=== PATIENT | female | born 1950 | race Caucasian/White ===

== ENCOUNTER → 2016-10-24 | Outpatient (CLI) | payer OTHER ==
[~2016-10-24] MED LIST: ADVIN25050 INH; ATEN50TA8 PO; CALC600T9 PO; HYDR25TA5 PO; MISCCAP80 PO; MULTTAB58 PO; NAPR500T3 PO; OXGN; VSC/10 PO; [UNRECOGNIZED DRUG - CODE] TOP
== END | disposition home or self-care (01) ==
LOC: C.LABPBG 10:38
PROVIDERS: ATTEND Internal Medicine Geriatric Medicine
DX: Z11.59 Encounter for screening for other viral diseases (principal)

== ENCOUNTER → 2016-11-30 | Outpatient (CLI) | payer OTHER ==
--- NOTE | 2016-11-30 15:09 | MAMMOGRAPHY REPORT ---
BILATERAL DIGITAL SCREENING MAMMOGRAM WITH CAD: 11/30/2016 CLINICAL HISTORY: Routine screening. Patient has no complaints. TECHNIQUE: Current study was also evaluated with a Computer Aided Detection (CAD) system. Bilatera l CC and MLO views were obtained. COMPARISON: Comparison is made to exams dated: 11/30/2015 mammogram, 11/26/2014 mammogram, 11/07/2013 mammogram, 11/04/2012 mammogram, 11/03/2011 mammogram, and 05/08/2011 mammogram - [facility]. BREAST COMPOSITION: There are scattered areas of fibroglandular density in both breasts. FINDINGS: No suspicious masses, calcifications, or areas of architectural distortion are noted in e ither breast. There has been no significant interval change compared to prior exams. There are gisela ral bilateral groupings of coarse heterogeneous microcalcifications, some of which have coarsened co mpared to prior mammograms, suggesting benignity. IMPRESSION: ACR BI-RADS CATEGORY 2: BENIGN There is no mammographic evidence of malignancy. A 1 year screening mammogram is recommended. The p atient will receive written notification of the results. Approximately 10% of breast cancers are not detected with mammography. A negative mammographic repor t should not delay biopsy if a clinically suggestive mass is present. Estefania Spear M.D. ah/:11/30/2016 13:34:44 Bottled Beverage Inspector: Linda CADENA(R)(M), [facility] letter sent: Normal 1/2 BI-RADS Code: ACR BI-RADS Category 2: Benign
== END | disposition home or self-care (01) ==
LOC: C.MAMM 09:22
PROVIDERS: ATTEND Obstetrics & Gynecology
DX: Z12.31 Encounter for screening mammogram for malignant neoplasm of breast (principal)

== ENCOUNTER → 2017-03-27 | Outpatient (CLI) | payer OTHER ==
[2017-03-27 12:07] LABS: BASO % 0.1 %; BASO ABS # 0.01 K/uL (0-0.2); COMPLETE YES; EOS % 1.1 %; HEMATOCRIT 38.6 % (37-47); IG% 0.2 %; LYMPH % 23.7 %; LYMPH ABS # 1.93 K/uL (1.2-3.4); MEAN CELL VOLUME 92.8 fL (80-100); MEAN CORPUSCULAR HEMOGLOBIN 29.8 pg (25-34); MEAN CORPUSCULAR HGB CONC 32.1 g/dl (32-36); MEAN PLATELET VOLUME 10.1 fL (7.4-10.4); MONO % 8.8 %; NEUT % 66.1 %; PLATELET COUNT 262 K/uL (130-400); RED BLOOD COUNT 4.16 M/uL (4.2-5.4); WHITE BLOOD COUNT 8.14 K/uL (4.8-10.8)
[2017-03-27 12:28] LABS: ALT/SGPT 27 U/L (12-78); AST/SGOT 20 U/L (15-37); BLOOD UREA NITROGEN 17 mg/dl (7-18); BUN/CREATININE RATIO 31.5 (10-20); CALCIUM 10.1 mg/dl (8.5-10.1); CARBON DIOXIDE 34 mmol/L (21-32); CHLORIDE 101 mmol/L (98-107); CREATININE 0.53 mg/dl (0.60-1.20); GLUCOSE 95 mg/dl (70-99); SODIUM 139 mmol/L (136-145)
[2017-03-27 12:38] LABS: ESTIMATED AVERAGE GLUCOSE 120 mg/dl; HA1C FLAG Normal (Normal)
[2017-03-27 12:39] LABS: ALKALINE PHOSPHATASE 80 U/L (45-117); CHOLESTEROL 187 mg/dl (0-200); CHOLESTEROL/HDL RATIO 3.7; HDL CHOLESTEROL 51 mg/dl; LDL CHOLESTEROL CALCULATED 104 mg/dl; TRIGLYCERIDES 159 mg/dl (0-150); VERY LOW DENSITY LIPOPROT CALC 32 mg/dl
== END | disposition home or self-care (01) ==
LOC: C.LABPBG 10:20
PROVIDERS: ATTEND Internal Medicine Geriatric Medicine
DX: J94.8 Other specified pleural conditions (principal); M19.90 Unspecified osteoarthritis, unspecified site; I10 Essential (primary) hypertension; G47.30 Sleep apnea, unspecified; R73.9 Hyperglycemia, unspecified; R09.02 Hypoxemia; I27.2 Other secondary pulmonary hypertension

== ENCOUNTER → 2017-10-02 | Outpatient (CLI) | payer OTHER ==
[2017-10-02 12:49] LABS: BASO % 0.2 %; BASO ABS # 0.02 K/uL (0-0.2); EOS % 2.9 %; EOS ABS # 0.26 K/uL (0-0.5); HEMATOCRIT 40.6 % (37-47); HEMOGLOBIN 12.8 g/dL (12.0-16.0); IG# 0.03 K/uL (0.00-0.02); LYMPH % 23.8 %; LYMPH ABS # 2.11 K/uL (1.2-3.4); MEAN CELL VOLUME 93.5 fL (80-100); MEAN CORPUSCULAR HEMOGLOBIN 29.5 pg (25-34); MEAN CORPUSCULAR HGB CONC 31.5 g/dl (32-36); MEAN PLATELET VOLUME 10.7 fL (7.4-10.4); MONO % 10.1 %; NEUT % 62.7 %; NEUT ABS # 5.56 K/uL (1.4-6.5); PLATELET COUNT 288 K/uL (130-400); RED CELL DISTRIBUTION WIDTH CV 12.8 % (11.5-14.5); RED CELL DISTRIBUTION WIDTH SD 43.8 fL (36.4-46.3); WHITE BLOOD COUNT 8.88 K/uL (4.8-10.8)
[2017-10-02 13:52] LABS: BLOOD UREA NITROGEN 18 mg/dl (7-18); CALCIUM 9.8 mg/dl (8.5-10.1); CARBON DIOXIDE 36 mmol/L (21-32); CREATININE 0.61 mg/dl (0.60-1.20); GLUCOSE 105 mg/dl (70-99); POTASSIUM 3.8 mmol/L (3.5-5.1); SODIUM 135 mmol/L (136-145)
[2017-10-02 13:55] LABS: CHOLESTEROL 186 mg/dl (0-200); LDL CHOLESTEROL CALCULATED 100 mg/dl
== END | disposition home or self-care (01) ==
LOC: C.LABPBG 10:45
PROVIDERS: ATTEND Internal Medicine Geriatric Medicine
DX: I10 Essential (primary) hypertension (principal); R73.9 Hyperglycemia, unspecified; R60.9 Edema, unspecified; E73.9 Lactose intolerance, unspecified; Z68.41 Body mass index [BMI] 40.0-44.9, adult

== ENCOUNTER → 2017-12-03 | Outpatient (CLI) | payer OTHER ==
[~2017-12-03] MED LIST changes: +NAPR-1231 PO; -NAPR500T3 PO
--- NOTE | 2017-12-04 13:04 | MAMMOGRAPHY REPORT ---
BILATERAL DIGITAL SCREENING MAMMOGRAM TOMOSYNTHESIS WITH CAD: 12/03/2017 CLINICAL HISTORY: Routine screening. Patient has no complaints. TECHNIQUE: Breast tomosynthesis in addition to standard 2D mammography was performed. Current study was also evaluated with a Computer Aided Detection (CAD) system. COMPARISON: Comparison is made to exams dated: 11/30/2016 mammogram, 11/30/2015 mammogram, 11/26/2014 m ammogram, 11/04/2012 mammogram, and 11/03/2011 mammogram - [facility]. BREAST COMPOSITION: There are scattered areas of fibroglandular density in both breasts. FINDINGS: There is stable asymmetry in the lateral right breast, and scattered benign-appearing group ings of coarse heterogeneous calcifications bilaterally. No suspicious mass, architectural distortio n or cluster of suspicious microcalcifications is seen. IMPRESSION: ACR BI-RADS CATEGORY 1: NEGATIVE There is no mammographic evidence of malignancy. A 1 year screening mammogram is recommended. The pa tient will receive written notification of the results. Approximately 10% of breast cancers are not detected with mammography. A negative mammographic report should not delay biopsy if a clinically suggestive mass is present. Alba Bynum M.D. ay/:12/03/2017 16:50:42 Apns: Perla CADENA(Reymundo)(M), [facility] letter sent: Normal 1/2 BI-RADS Code: ACR BI-RADS Category 1: Negative
== END | disposition home or self-care (01) ==
LOC: C.MAMM 09:28
PROVIDERS: ATTEND Obstetrics & Gynecology
DX: Z12.31 Encounter for screening mammogram for malignant neoplasm of breast (principal)

== ENCOUNTER → 2017-12-17 | Outpatient (CLI) | payer OTHER ==
--- NOTE | 2017-12-17 15:49 | DIAGNOSTIC IMAGING REPORT ---
CHEST 2 VIEWS ROUTINE HISTORY: 67 years-old Female J20.9 Acute [id number] COMPARISON: Chest radiograph 06/26/2016 TECHNIQUE: PA and lateral views of the chest FINDINGS: Lungs are again hypoinflated with bronchovascular crowding. Cardiac silhouette appears to be in the upper limits of normal, unchanged. No pneumothorax or large pleural effusion. Blunting of the costophrenic angles is unchanged with linear subsegmental bibasilar opacities suggesting atelectasis. Fixation arun of the thoracolumbar spine is noted along with sigmoidal thoracolumbar scoliosis. Atherosclerosis of the aorta. IMPRESSION: Hypoinflation with bronchovascular crowding and subsegmental bibasilar atelectasis. The above report was generated using voice recognition software. It may contain grammatical, syntax or spelling errors. Electronically signed by: Chilo Pineda M.D. 12/17/2017 3:47 PM Dictated Date/Time: 12/17/2017 3:45 PM
== END | disposition home or self-care (01) ==
LOC: C.RAD1850 15:31
PROVIDERS: ATTEND Physician Assistant
DX: J20.9 Acute bronchitis, unspecified (principal); R91.8 Other nonspecific abnormal finding of lung field

== ENCOUNTER 2018-04-08 11:46 | Emergency (ER) | payer OTHER ==
[~2018-04-08] VITALS: Ht 152.4 cm; Wt 97.0 kg
[~2018-04-08 11:46] MED LIST changes: +ADVIN25/60 INH; -ADVIN25050 INH; +AMOX1TAB43 PO; +HYDR25TA4 PO; -HYDR25TA5 PO; +LACTOSE INTOLERANCE PO; +LOVA20TA4 PO; -MISCCAP80 PO; +NYSCR30 EXT; -OXGN; +PRD10 PO; +TRMCR180 TOP; -[UNRECOGNIZED DRUG - CODE] TOP
[2018-04-08 12:22] VITALS: Ht 152.4 cm; Wt 97.0 kg
[2018-04-08 12:29] VITALS: O2SAT 99
--- NOTE | 2018-04-08 12:47 | DIAGNOSTIC IMAGING REPORT ---
CHEST ONE VIEW PORTABLE CLINICAL HISTORY: EVALUATE RESPIRATORY DISTRESS.DYSPNEA dyspnea COMPARISON STUDY: 03/22/2018 FINDINGS: Lung volumes remain diminished. Mild left basilar atelectatic change unaltered. Prominent left hilum and/or central pulmonary arterial vasculature unchanged. Mid and upper lungs are clear. IMPRESSION: Unchanging left basilar atelectasis. No evidence for an acute parenchymal infiltrate. The above report was generated using voice recognition software. It may contain grammatical, syntax or spelling errors. Electronically signed by: Mart Selby M.D. 04/08/2018 12:46 PM Dictated Date/Time: 04/08/2018 12:45 PM
[2018-04-08 12:48] LABS: BASO % 0.3 %; BASO ABS # 0.02 K/uL (0-0.2); EOS ABS # 0.07 K/uL (0-0.5); HEMATOCRIT 37.6 % (37-47); HEMOGLOBIN 11.5 g/dL (12.0-16.0); IG# 0.02 K/uL (0.00-0.02); LYMPH % 17.6 %; LYMPH ABS # 1.29 K/uL (1.2-3.4); MEAN CELL VOLUME 95.4 fL (80-100); MEAN CORPUSCULAR HEMOGLOBIN 29.2 pg (25-34); MEAN CORPUSCULAR HGB CONC 30.6 g/dl (32-36); MEAN PLATELET VOLUME 9.2 fL (7.4-10.4); MONO % 9.7 %; MONO ABS # 0.71 K/uL (0.11-0.59); NEUT % 71.1 %; NEUT ABS # 5.21 K/uL (1.4-6.5); PLATELET COUNT 211 K/uL (130-400); RED CELL DISTRIBUTION WIDTH CV 13.7 % (11.5-14.5); RED CELL DISTRIBUTION WIDTH SD 47.3 fL (36.4-46.3); WHITE BLOOD COUNT 7.32 K/uL (4.8-10.8)
[2018-04-08 13:00] LABS: PTT PATIENT 24.1 SECONDS (21.0-31.0)
[2018-04-08 13:05] LABS: ALBUMIN 3.5 gm/dl (3.4-5.0); CREATININE 0.49 mg/dl (0.60-1.20); POTASSIUM 3.6 mmol/L (3.5-5.1); TOTAL PROTEIN 6.7 gm/dl (6.4-8.2)
[2018-04-08 15:50] VITALS: BP 125/76; PULSE 65; O2SAT 99
--- NOTE | 2018-04-08 17:12 | EMERGENCY ROOM VISIT NOTE ---
History Report prepared by Alix: Fabi Angelo Under the Supervision of: Dr. Ray Rizzo D.O. First contact with patient: 11:58 Chief Complaint: SHORTNESS OF BREATH Stated Complaint: BREATHING DIFFICULTY, POSSIBLE CARBON MONOXIDE History of Present Illness The patient is a 68 year old female who presents to the Emergency Room with no complaints that she was referred in by the PCP was concerned that she may be short of breath. The patient states that she went to her PCP for a check up after a previous visit to the hospital and the PA she saw was concerned with how she was breathing. The patient states that the PA was worried about her breathing because her "carbon dioxide is too high and the oxygen is too low". The patient states that she does not have any new chronic symptoms that are bothering her and that she is at her baseline, but the PA suggested that she go to the ED because her symptoms could be life-threatening. The patient has a history of COPD, partially collapsed lungs, chronic leg swelling, and uses 3 liters of oxygen at home. The patient denies shortness of breath, chest pain, nausea, vomiting, urinary symptoms, rhinorrhea, and abdominal pain. She also denies the use of blood thinners and a history of heart failure. The patient states that she has been eating and drinking normally. She states that she has been improving since she has been at the hospital and feels as though she is almost back to baseline. Source of History: patient Onset: prior to arrival Position: other (lungs) Quality: other (referral) Timing: other (episode) Associated Symptoms: No chest pain, No SOB, No nausea, No vomiting, No abdominal pain, No urinary symptoms Note: The patient denies rhinorrhea. Review of Systems See HPI for pertinent positives & negatives. A total of 10 systems reviewed and were otherwise negative. Past Medical & Surgical Medical Problems: (1) Acute on chronic respiratory failure with hypoxia and hypercapnia (2) Chest pain (3) Chronic partially collapsed right lung (4) Diverticulitis (5) Scoliosis Surgical Problems: (1) H/O knee surgery (2) H/O spinal fusion (3) Hx of tubal ligation (4) Previous section (5) S/P appendectomy (6) S/P cholecystectomy Family History CVA FHx: cancer TIAs Social History Smoking Status: Never Smoker Alcohol Use: none Drug Use: none Marital Status: single Housing Status: lives with family Occupation Status: employed Current/Historical Medications Scheduled Atenolol (Tenormin), 50 MG PO QAM Calcium Carbonate-Vitamin D (Calcium + D), 1 TAB PO QAM Fluticasone Prop/Salmeterol (Advair Diskus 250/50 60 Dose), 1 PUFF INH BID Hydrochlorothiazide (Hctz), 25 MG PO DAILY Lovastatin (Mevacor), 20 MG PO DAILY Multiple Vitamin (Multivitamin), 1 TAB PO QAM Solifenacin Succinate (Vesicare), 10 MG PO HS Triamcinolone Acet (Aristocort 0.1%), 1 APPLN TOP DAILY [Lactose Intolerance], 1-2 CAP PO PRN Scheduled PRN Naproxen (Naproxen), 500 MG PO BID PRN for Pain Nystatin (Nystatin Cream), 0 EXT BID PRN for Allergies Coded Allergies: Furosemide (Verified Allergy, Severe, RASH WITH BLISTERS, 04/08/18) Loratadine (Verified Allergy, Mild, "hives", 04/08/18) Povidone Iodine (Verified Allergy, Unknown, HIVES, 04/08/18) Propranolol (Verified Allergy, Unknown, RESP FAILURE, 04/08/18) UNSURE IF CORRECT Physical Exam Vital Signs Date Time Temp Pulse Resp B/P (MAP) Pulse Ox O2 Delivery O2 Flow Rate FiO2 04/08/18 15:50 65 18 125/76 99 04/08/18 15:00 70 18 132/72 99 Nasal Cannula 1.0 04/08/18 13:26 62 18 139/69 99 Nasal Cannula 1.0 04/08/18 12:58 65 04/08/18 12:29 99 Nasal Cannula 2.0 04/08/18 12:22 Nasal Cannula 3.0 04/08/18 11:51 36.9 65 23 147/70 90 Room Air Physical Exam GENERAL: Sitting at edge of bed, talking in full sentences, nasal canula in place/chronic 3 L EYE EXAM: normal conjunctiva. OROPHARYNX: no exudate, no erythema, lips, buccal mucosa, and tongue normal and mucous membranes are moist NECK: supple, no nuchal rigidity, no adenopathy, non-tender LUNGS: Breath sounds diminished throughout with faint wheezing. Normal chest wall mechanics HEART: no murmurs, S1 normal and S2 normal ABDOMEN: abdomen soft, non-tender, normo-active bowel sounds, no masses, no rebound or guarding. BACK: Back is symmetrical on inspection and there is no deformity, no midline tenderness, no CVA tenderness. SKIN: no rashes and no bruising UPPER EXTREMITIES: upper extremities are grossly normal. LOWER EXTREMITIES: No pitting edema. Calves are equal bilaterally. NEURO EXAM: Normal sensorium, cranial nerves II-XII grossly intact, normal speech, no gross weakness of arms, no gross weakness of legs. Medical Decision & Procedures ER Provider Diagnostic Interpretation: Radiology results as stated below per my review and the radiologist's interpretation: CHEST ONE VIEW PORTABLE CLINICAL HISTORY: EVALUATE RESPIRATORY DISTRESS.DYSPNEA dyspnea COMPARISON STUDY: 03/22/2018 FINDINGS: Lung volumes remain diminished. Mild left basilar atelectatic change unaltered. Prominent left hilum and/or central pulmonary arterial vasculature unchanged. Mid and upper lungs are clear. IMPRESSION: Unchanging left basilar atelectasis. No evidence for an acute parenchymal infiltrate. The above report was generated using voice recognition software. It may contain grammatical, syntax or spelling errors. Electronically signed by: Mart Selby M.D. 04/08/2018 12:46 PM Dictated Date/Time: 04/08/2018 12:45 PM Laboratory Results 04/08/18 12:33 Red Blood Count 3.94, Mean Corpuscular Volume 95.4, Mean Corpuscular Hemoglobin 29.2, Mean Corpuscular Hemoglobin Concent 30.6, Mean Platelet Volume 9.2, Neutrophils (%) (Auto) 71.1, Lymphocytes (%) (Auto) 17.6, Monocytes (%) (Auto) 9.7, Eosinophils (%) (Auto) 1.0, Basophils (%) (Auto) 0.3, Neutrophils # (Auto) 5.21, Lymphocytes # (Auto) 1.29, Monocytes # (Auto) 0.71, Eosinophils # (Auto) 0.07, Basophils # (Auto) 0.02 04/08/18 12:33 Test 04/08/18 12:33 04/08/18 14:00 White Blood Count 7.32 K/uL (4.8-10.8) Red Blood Count 3.94 M/uL (4.2-5.4) Hemoglobin 11.5 g/dL (12.0-16.0) Hematocrit 37.6 % (37-47) Mean Corpuscular Volume 95.4 fL (80-100) Mean Corpuscular Hemoglobin 29.2 pg (25-34) Mean Corpuscular Hemoglobin Concent 30.6 g/dl (32-36) Platelet Count 211 K/uL (130-400) Mean Platelet Volume 9.2 fL (7.4-10.4) Neutrophils (%) (Auto) 71.1 % Lymphocytes (%) (Auto) 17.6 % Monocytes (%) (Auto) 9.7 % Eosinophils (%) (Auto) 1.0 % Basophils (%) (Auto) 0.3 % Neutrophils # (Auto) 5.21 K/uL (1.4-6.5) Lymphocytes # (Auto) 1.29 K/uL (1.2-3.4) Monocytes # (Auto) 0.71 K/uL (0.11-0.59) Eosinophils # (Auto) 0.07 K/uL (0-0.5) Basophils # (Auto) 0.02 K/uL (0-0.2) RDW Standard Deviation 47.3 fL (36.4-46.3) RDW Coefficient of Variation 13.7 % (11.5-14.5) Immature Granulocyte % (Auto) 0.3 % Immature Granulocyte # (Auto) 0.02 K/uL (0.00-0.02) Prothrombin Time 10.4 SECONDS (9.0-12.0) Prothromb Time International Ratio 1.0 (0.9-1.1) Activated Partial Thromboplast Time 24.1 SECONDS (21.0-31.0) Partial Thromboplastin Ratio 0.9 Anion Gap 5.0 mmol/L (3-11) Est Creatinine Clear Calc Drug Dose 114.7 ml/min Estimated GFR () 116.0 Estimated GFR (Non- 100.1 BUN/Creatinine Ratio 28.5 (10-20) Calcium Level 9.0 mg/dl (8.5-10.1) Total Bilirubin 0.8 mg/dl (0.2-1) Aspartate Amino Transf (AST/SGOT) 28 U/L (15-37) Alanine Aminotransferase (ALT/SGPT) 39 U/L (12-78) Alkaline Phosphatase 51 U/L (45-117) Troponin I < 0.015 ng/ml (0-0.045) Pro-B-Type Natriuretic Peptide 316 pg/ml (0-900) Total Protein 6.7 gm/dl (6.4-8.2) Albumin 3.5 gm/dl (3.4-5.0) Globulin 3.2 gm/dl (2.5-4.0) Albumin/Globulin Ratio 1.1 (0.9-2) Urine Color YELLOW Urine Appearance CLEAR (CLEAR) Urine pH 7.0 (4.5-7.5) Urine Specific Letts 1.019 (1.000-1.030) Urine Protein TRACE (NEG) Urine Glucose (UA) NEG (NEG) Urine Ketones NEG (NEG) Urine Occult Blood NEG (NEG) Urine Nitrite NEG (NEG) Urine Bilirubin NEG (NEG) Urine Urobilinogen NEG (NEG) Urine Leukocyte Esterase TRACE (NEG) Urine WBC (Auto) 1-5 /hpf (0-5) Urine RBC (Auto) 0-4 /hpf (0-4) Urine Hyaline Casts (Auto) 1-5 /lpf (0-5) Urine Epithelial Cells (Auto) >30 /lpf (0-5) Urine Bacteria (Auto) NEG (NEG) Laboratory results per my review. ECG Per My Interpretation Indication: SOB/dyspnea Rate (beats per minute): 61 Rhythm: sinus rhythm Findings: nonspecific-ST abn (Inferior), T-wave inversion (Septal) Comparison ECG Date: 03/21/2018 Change: no significant change ED Course ED COURSE: Vital signs were reviewed and showed hypertension situationally. The patients medical record was reviewed The above diagnostic studies were performed and reviewed. ED treatments and interventions as stated above. 1159: The patient was evaluated in room C7. A complete history and physical examination was performed. 1406: I discussed the patient's case with Dr. Lea- Cardiology. He reviewed the patient's EKG and states that there is no change from prior. 1536: Upon reevaluation, the patient is resting comfortably. I discussed my findings with the patient and she understands and agrees with the treatment plan. Based on the patients age, coexisting illnesses, exam and lab findings the decision to treat as an outpatient was made. The patient remained stable while under my care. The patient appeared well at the time of discharge. Medical Decision Differential diagnoses includes but is not limited to pneumonia, bronchitis, COPD/Asthma exacerbation, pneumothorax, pulmonary embolism, congestive heart failure, acute coronary syndrome. Patient is a 60-year-old female who presents the ER referred in by her PCP. She went there for a follow-up from hospital admission over a week ago. She has no new symptoms and notes that her symptoms are actually improving significantly. She is almost back to baseline. No new chest pain or shortness of breath. CBC along with BMP, LFTs, bilirubin and troponin was negative. UA was negative. Chest x-ray unremarkable. EKG was unchanged from previous and reviewed by cardiology over the phone. Based on patient's symptoms as she is completely asymptomatic on her chronic 3 L O2 I felt there is no reason to admit her at this time. She also wants to go home. She denies any new complaints and notes her symptoms are actually continuing to improve. I discharge her to follow-up with PCP as an outpatient. Discussed with Pt concerning signs and symptoms to watch out for. Pt was instructed to follow up with their PCP and discussed with the patient their option to return to the ED at anytime for persistent or worsening symptoms. The appropriate anticipatory guidance and out-patient management, including indications for return to the emergency department, were explained at length to the patient and understood. Medication Reconcilliation Current Medication List: was personally reviewed by me Blood Pressure Screening Patient's blood pressure: Elevated blood pressure Blood pressure disposition: Elevated BP felt to be situational Consults Time Called: 1401 Consulting Physician: Dr. Tierney Cardiology Returned Call: 1406 I discussed the patient's case with Dr. Niall Bryan. He reviewed the patient's EKG and states that there is no change from prior. Impression Primary Impression: Chronic obstructive pulmonary disease Scribe Attestation The scribe's documentation has been prepared under my direction and personally reviewed by me in its entirety. I confirm that the note above accurately reflects all work, treatment, procedures, and medical decision making performed by me. Departure Information Dispostion Home / Self-Care Referrals Rajiv Cortes M.D. (PCP) Forms HOME CARE DOCUMENTATION FORM, IMPORTANT VISIT INFORMATION Patient Instructions My [facility] Additional Instructions Please follow up with your primary care doctor with in the next 24 hours. Any worsening of your symptoms, please return to the ED immediately. This includes any fevers greater than 100.4, worsening pain, chest pain, shortness breath, persistent nausea, vomiting, unable to eat or drink, or any other concerning signs or symptoms from your standpoint. Please make sure you follow-up with your PCP for any worsening of symptoms Problem Qualifiers Primary Impression: Chronic obstructive pulmonary disease COPD type: unspecified COPD Qualified Codes: J44.9 - Chronic obstructive pulmonary disease, unspecified
== END 2018-04-08 15:50 | disposition home or self-care (01) ==
LOC: C.EDB 11:49 → C.EDC 15:50
DX: J44.9 Chronic obstructive pulmonary disease, unspecified (principal); J98.19 Other pulmonary collapse; Z99.81 Dependence on supplemental oxygen; Z79.899 Other long term (current) drug therapy; Z88.8 Allergy status to other drugs, medicaments and biological substances; Z91.041 Radiographic dye allergy status